=== PATIENT | female | born 1975 | race Caucasian/White ===

== ENCOUNTER 2019-07-19 18:49 | Emergency (ER) | payer OTHER ==
[2019-07-19 19:38] VITALS: BP 149/98; PULSE 85; TEMP 98.7
--- NOTE | 2019-07-19 19:39 | PDOC ---
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 No comorbidities. ROS: NEGATIVE: difficulty breathing, shortness of breath, chest pain, lightheadedness, dizziness, nausea, vomiting and diarrhea. Other 12 point ROS reviewed and negative. Exam: General: NAD, Well-Appearing, Awake, Alert Oriented x3. Vital signs stable. ENT: No rhinorrhea or nasal congestion. Neck: FROM, no midline tenderness. Lungs: Clear to auscultation bilaterally without wheezes, rhonchi or rales. Normal excursion. Patient is able to speak in full sentences. Heart: HR: [Regular rhythm, S1-S2 present, no murmurs rubs or gallops. Abdomen: Non-distended. MSK/Extremities: No decrease ROM, No obvious deformities. No obvious cyanosis noted. Neuro: Normal Gait, Cranial Nerves II through XII Grossly Intact. Skin: No obvious rashes, bruising. Color Normal Appearing. Assessment/Plan: Patient has a history of this/these comorbidities: None COVID exposure & symptoms Patient does not meet testing criteria at this time. Treatment: Tessalon for cough/sore throat Tylenol for fever Fluids Drive-thru testing appt ED return precautions reviewed Discharge Disposition - Diagnosis Cough - Discharge Dispostion Disposition: HOME Condition at time of disposition: Stable Decision to Admit order: No - Referrals - Patient Instructions Printed Discharge Instructions: [facility] Instructions, [facility] COVID-19 Isolation Protocol Additional Instructions: [place] crisostomo Tessalon ingrid receto para holcomb tos You were seen for your cough and possible Coronavirus (COVID-19) Please call the [facility] testing center to make an appointment at or you can call [facility] at from 8:30 AM to 6 PM; or you can visit the [facility] website: [email or web address] for more information about testing at the [facility]. Take Tylenol 650 mg every 6 hours as needed for fever or pain. You may take Ro bitussin or other oxov-qwf-rharpzn cough syrup. Follow the dosing instructions on the bottle. Warm tea, honey, and salt water gargles may help your symptoms. Please take precautions and self quarantine for 2 weeks and follow-up with your primary care doctor and the Department of Health. Return to the nearest emergency department for shortness of breath, difficulty breathing, chest pain, or if you have any changes in your symptoms. Print Language: PASHTO - Post Discharge Activity
== END 2019-07-19 19:40 | disposition home or self-care (01) ==
LOC: JER 18:49
DX: R50.9 Fever, unspecified (principal); R05 Cough; Z20.828 Contact with and (suspected) exposure to other viral communicable diseases
CPT/HCPCS: 99283-25